=== PATIENT | female | born 1980 | race Caucasian/White ===

== ENCOUNTER 2018-05-26 23:32 | Emergency (ER) | payer SELFPAY ==
[2018-05-26 23:56] VITALS: BP 112/65; PULSE 92; TEMP 98.4; BMI 25.3
[2018-05-27] MEDS ORDERED: ACETAMINOPHEN 500 MG TABLET (FP) PO ONE (00:32)
[2018-05-27] MEDS ORDERED: METOCLOPRAMIDE HCL 10 MG TABLET (FP) PO ONE ×2 (00:32→00:50)
--- NOTE | 2018-05-27 00:32 | PDOC ---
Attending Attestation - Resident Resident Name: Mary Alice Ku - ED Attending Attestation I have performed the following: I have examined & evaluated the patient, The case was reviewed & discussed with the resident, I agree w/resident's findings & plan, Exceptions are as noted <Wilner Paniagua - Last Filed: 05/27/18 00:32> - HPI HPI: 05/27/18 00:34 The patient is a 37 year old female with no significant past medical history who presents to the emergency department with a headache for 2 weeks. The patient describes her pain as intolerable, located in the temporal region bilaterally. She reports associated nose drainage that has been both bloody and clear at times since the onset of her symptoms. The patient reports cocaine use , most recently 1 week ago. - Physicial Exam PE: 05/27/18 00:34 GENERAL: Well-appearing, well-nourished. No apparent distress. HEENT: Normocephalic, atraumatic. PERRL, EOM intact. CARDIOVASCULAR: Normal S1, S2. Regular rate and rhythm. PULMONARY: Clear to auscultation bilaterally. ABDOMEN: Soft, non-distended, non-tender. EXTREMITIES: Normal ROM in all four extremities. No gross deformities. SKIN: Warm, dry. No rash NEUROLOGICAL: No focal neurological deficits. - Medical Decision Making 05/27/18 00:34 Documentation prepared by Danny Gonsalez, acting as hospital medical assistant for Wilner Paniagua DO. <Danny Gonsalez - Last Filed: 05/27/18 00:34>
[2018-05-27] MEDS ORDERED: ACETAMINOPHEN 325 MG TABLET (FP) ONE (00:50)
--- NOTE | 2018-05-27 01:06 | PDOC ---
History of Present Illness - General Chief Complaint: Headache Stated Complaint: HEADACHE/PAIN Time Seen by Provider: 05/26/18 23:58 History Source: Patient Exam Limitations: No Limitations - History of Present Illness Initial Comments: 37 YOF with h/o cocaine use (snorting with last use 1 week ago) who p/w two weeks of fluctuating throbbing frontal and bitemporal headache with pain level up to 9/10 unrelieved by Advil and Motrin. The patient has been taking both Advil and Motrin at the same time. She additionally notes pulsating sound in her right ear, mild room-spinning dizziness worse when she stands up but relieved within minutes, and drainage of blood-tinged fluid from her nose for the same amount of time. She denies fever, chills, nausea, vomiting, diarrhea, constipation, vision changes, difficulty hearing, numbness, tingling, focal weakness, difficulty walking, or other symptoms. Past History - Past Medical History Allergies/Adverse Reactions: Allergies Allergy/AdvReac Type Severity Reaction Status Date / Time peanut Allergy Difficulty Verified 05/26/18 23:54 Breathing Home Medications: Ambulatory Orders Ranitidine [Zantac -] 150 mg PO DAILY #5 tablet 06/17/14 predniSONE [Deltasone -] 20 mg PO UTDICT #8 tablet 06/17/14 Oxycodone HCl/Acetaminophen [Percocet 5-325 mg Tablet -] 1 - 2 tab PO Q4H #20 tablet 09/08/14 Amoxicillin/Potassium Clav [Augmentin 875-125 Tablet] 1 each PO BID #20 tablet 05/27/18 Thyroid Disease: No - Immunization History Immunization Up to Date: No - Suicide/Smoking/Psychosocial Hx Smoking History: Never smoked Have you smoked in the past 12 months: No Number of Cigarettes Smoked Daily: 6 Information on smoking cessation initiated: No Hx Alcohol Use: No Drug/Substance Use Hx: No Substance Use Type: None Review of Systems - Review of Systems Able to Perform ROS?: Yes Constitutional: No: Chills, Fever, Unexplained wgt Loss HEENTM: Yes: Tinnitus (right ear pulsating), Nose Bleeding. No: Nose Congestion , Throat Pain Respiratory: No: Cough, Shortness of Breath Cardiac (ROS): No: Chest Pain, Palpitations ABD/GI: No: Constipated, Diarrhea, Nausea, Vomiting : No: Burning, Dysuria Musculoskeletal: No: Back Pain, Neck Pain Integumentary: No: Bruising, Rash Neurological: Yes: Headache, Dizziness. No: Numbness, Tingling, Weakness Endocrine: No: Unexplained Weight Gain, Unexplained Weight Loss *Physical Exam - Vital Signs Last Vital Signs Temp Pulse Resp BP Pulse Ox 98.4 F 92 H 20 112/65 97 05/26/18 23:54 05/26/18 23:54 05/26/18 23:54 05/26/18 23:54 05/26/18 23:54 - Physical Exam General Appearance: Yes: Nourished, Appropriately Dressed, Other (nontoxic and well appearing, hair pulled back very tight in a bun, answering questions appropriately). No: Apparent Distress HEENT: positive: EOMI, Normal Voice, Hearing Grossly Normal, Other (small amount of blood-tinged clear fluid dripping from right nare with negative halo sign, no nasal septal hematoma, no obvious necrosis of nasal septum, nose with chronic-appearing saddle deformity). negative: Scleral Icterus (R), Scleral Icterus (L), Nasal Congestion Neck: positive: Trachea midline, Supple. negative: Tender, Rigid Respiratory/Chest: positive: Lungs Clear, Normal Breath Sounds. negative: Respiratory Distress, Crackles, Rhonchi, Stridor, Wheezing Cardiovascular: positive: Regular Rhythm, Regular Rate, S1, S2. negative: Edema , JVD, Murmur Gastrointestinal/Abdominal: positive: Normal Bowel Sounds, Flat, Soft. negative : Tender, Organomegaly, Pulsatile Mass, Guarding Musculoskeletal: positive: Normal Inspection. negative: Decreased Range of Motion, Vertebral Tenderness Extremity: positive: Normal Capillary Refill, Normal Inspection, Normal Range of Motion. negative: Tender, Cyanosis Integumentary: positive: Normal Color, Dry, Warm. 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 negative: EOM Palsy, Facial Droop, Numbness, Sensory Deficit, Confused, Disoriented ED Treatment Course - RADIOLOGY Radiology Studies Ordered: Category Date Time Status HEAD CT WITHOUT CONTRAST [CT] Stat CT Scan 05/27/18 00:[address] W/O CONTRAST [CT] Stat CT Scan 05/27/18 00:32 Ordered FINGER(S) RIGHT [RAD] Stat Radiology 05/27/18 00:47 Stop Req - Medications Given in the ED: ED Medications Discontinued Medications Generic Name Dose Route Start Last Admin Trade Name Freq PRN Reason Stop Dose Admin Acetaminophen 975 mg 05/27/18 00:32 05/27/18 00:57 Tylenol - PO 05/27/18 00:33 975 mg ONCE ONE Administration Metoclopramide HCl 10 mg 05/27/18 00:32 05/27/18 00:57 Reglan - PO 05/27/18 00:33 10 mg ONCE ONE Administration Medical Decision Making - Medical Decision Making 05/27/18 01:11 Adult female Pt p/w headache, no reported mechanism for injury, no new red flag symptoms (see HPI). Initial Vital Signs Temp Pulse Resp BP Pulse Ox 98.4 F 92 H 20 112/65 97 05/26/18 23:54 05/26/18 23:54 05/26/18 23:54 05/26/18 23:54 05/26/18 23:54 Exam: DDX IBNLT primary ROSALES syndrome (tension/migraine/cluster), cribriform plate necrosis/septal necrosis with possible infection, intracranial infection, trigeminal neuralgia, zoster, SAH (sudeep. sudden onset), subdural or epidural hematoma (sudeep. after trauma), ruptured/acutely expanded aneurysm, preeclampsia/ eclampsia, encephalitis, meningitis, glaucoma, atypical PNA, idiopathic intracranial hypertension (uncommon in males), GCA (uncommon <50 yo), mass lesion, brain metastasis (sudeep. known CA patients and/or ROSALES with increasing severity/frequency), brain abscess (sudeep. immunocompromised patients), DKA, etc. W/U ordered: hCG Head CT Sinus CT TX ordered: Tylenol Reglan Head/Sinus CT: Severe sinusitis, bilateral mastoiditis. Laboratory Tests 05/27/18 00:50 Urine HCG, Qual Negative Reassessment: Patient states feels better, wants to go home. First dose Augmentin given in her ED. Repeat VS: DISCHARGE The Pt has gotten significant relief of symptoms with ED medications. Workup is not concerning for emergency-level pathology at this time. The Pt is appropriate for discharge home w/ close outpatient f/u. She is comfortable with this plan. She will take Motrin and/or Tylenol for pain. E-Rx sent for Augmentin. She will follow up with her regular doctor in the next 1-3 days. Referral info given for ENT at the patient's request. Specific return precautions are discussed and they will come back to the ER if necessary. *DC/Admit/Observation/Transfer Diagnosis at time of Disposition: Sinusitis Qualifiers: Sinusitis location: unspecified location Chronicity: unspecified Qualified Code (s): J32.9 - Chronic sinusitis, unspecified Mastoiditis Qualifiers: Laterality: bilateral Qualified Code(s): H70.93 - Unspecified mastoiditis, bilateral Headache Qualifiers: Headache type: unspecified Headache chronicity pattern: unspecified pattern Intractability: not intractable Qualified Code(s): R51 - Headache - Discharge Dispostion Disposition: HOME Condition at time of disposition: Stable Decision to Admit order: No - Prescriptions Prescriptions: Amoxicillin/Potassium Clav [Augmentin 875-125 Tablet] 1 each PO BID #20 tablet - Referrals Referrals: Marci Paredes MD [Primary Care Provider] - Neeraj Andrade MD [Staff Physician] - - Patient Instructions Printed Discharge Instructions: DI for Sinusitis, DI for Mastoiditis-Adult Additional Instructions: You were seen in the ER for a headache. We did CT scans of your head and sinuses and found a sinusitis infection and a mastoiditis infection. Your pain improved with the medications we gave you here in the ER, and we gave you your first dose of antibiotics here too. After our assessment, we believe you are not having a medical emergency and you are safe to go home. Please cook pickled meat your prescription for antibiotics that we are sending to your pharmacy and take them as prescribed. Take the whole course, whether or not you feel better. Please take [id number] pain relievers like ibuprofen (Motrin) or Tylenol. Stay very well-hydrated, and please do not use any drugs. These drugs can eat away at the skin in your nose and cause damage. Follow up with your regular doctor(s ) in the next 1-3 days. Call their clinic [facility], tell them you were seen in the ER, and tell them you need an appointment. We are also giving you referral information for ENT. Please come back to the ER at any time, 24 hours a day, for any new or worsening symptoms, like worsening headache, new numbness/ tingling, fainting, dizziness, new vision changes, high fever, or other symptoms. If you are having symptoms that make it unsafe to drive, please call 911. - Post Discharge Activity
[2018-05-27] MEDS ORDERED: AMOX TR/POT CLAV 875MG/125MG TABLETS (FP) PO ONE (02:26)
[2018-05-27] MEDS ORDERED: AMOX TR/POT CLAV 875MG/125MG TABLETS (FP) ONE (02:53)
== END 2018-05-27 02:30 | disposition home or self-care (01) ==
LOC: JER 23:32
DX: J32.9 Chronic sinusitis, unspecified (principal); H70.93 Unspecified mastoiditis, bilateral; R51 Headache
CPT/HCPCS: 70450-TC; 70486-TC; 84703; 99281-25